=== PATIENT | female | born 1970 | race Hispanic/Latino ===

== ENCOUNTER 2018-05-24 08:49 | Outpatient (CLI) | payer OTHER ==
--- NOTE | 2018-05-24 12:53 | Mammography Report ---
BILATERAL DIGITAL SCREENING MAMMOGRAM with CAD: 05/24/18 08:49:00 CLINICAL: Routine screening. COMPARISON:03/25/16 FINDINGS: The breasts are heterogeneously dense, which may obscure small masses. No mass, architectural distortion or suspicious calcifications. IMPRESSION: No mammographic evidence of malignancy. BI-RADS CATEGORY: 1 - - Negative RECOMMENDATION: Routine mammographic screening in one year. COMMENT: Patient follow-up letters are generated by our [employer] application.
== END 2018-05-24 08:50 | disposition home or self-care (01) ==
LOC: MAMMO 08:49
PROVIDERS: ATTEND Family Medicine
DX: Z12.31 Encounter for screening mammogram for malignant neoplasm of breast (principal); I10 Essential (primary) hypertension; M10.9 Gout, unspecified
CPT/HCPCS: 77067

== ENCOUNTER 2019-06-05 07:48 | Outpatient (CLI) | payer OTHER ==
--- NOTE | 2019-06-05 13:49 | Mammography Report ---
DIGITAL SCREENING MAMMOGRAM WITH CAD, 06/05/2019 INDICATION: Routine screening mammography. TECHNIQUE: Digital bilateral 2D mammography was obtained in the craniocaudal and mediolateral obliq ue projections. This examination was interpreted with the benefit of Computer-Aided Detection analysi s. COMPARISON: 05/24/2018 FINDINGS: Breast Density: The breasts are heterogeneously dense, which may obscure small masses. There is no evidence of dominant mass, suspicious calcifications or architectural distortion in eithe r breast. IMPRESSION: No mammographic evidence of malignancy. Follow up recommendation: Routine yearly BI-RADS Category 1: Negative. A "normal" or negative report should not discourage follow up or biopsy of a clinically significant f inding. A written summary of these findings will be mailed to the patient. The patient will be entered into a mammography reporting system which will generate a reminder letter for the patient's next appointmen t at the appropriate interval. The [employer] recommends yearly mammograms starting at age 40 and continuing as l epifanio as a woman is in good health. Breast MRI is recommended for women with an approximate 20-25% or greater lifetime risk of breast cancer, including women with a strong family history of breast or ova arabella cancer or who have been treated for Hodgkin's disease. Signer Name: Dwight Eddy MD Signed: 06/05/2019 1:45 PM Workstation Name: [id number]
== END 2019-06-05 07:49 | disposition home or self-care (01) ==
LOC: MAMMO 07:48
PROVIDERS: ATTEND Family Medicine
DX: Z12.31 Encounter for screening mammogram for malignant neoplasm of breast (principal); I10 Essential (primary) hypertension; M10.9 Gout, unspecified; F12.90 Cannabis use, unspecified, uncomplicated; Z87.891 Personal history of nicotine dependence
CPT/HCPCS: 77067

== ENCOUNTER 2019-12-18 09:11 | Outpatient (CLI) | payer OTHER ==
--- NOTE | 2019-12-18 10:22 | Mammography Report ---
DIGITAL DIAGNOSTIC MAMMOGRAM WITH CAD, -- 12/18/2019 INDICATION: Patient presents for evaluation of focal pain in the left breast. Patient also is high ri sk secondary to family history of breast cancer. TECHNIQUE: Digital left mammographic imaging was performed. This examination was interpreted with the benefit of Computer-aided Detection analysis. COMPARISON: Prior mammograms 06/05/2019 and 05/24/2018 FINDINGS: Breast Density: The breasts are heterogeneously dense, which may obscure small masses. There is no evidence of dominant mass, suspicious calcifications or architectural distortion in the l eft breast. A few benign-appearing calcifications in the left breast are unchanged. There has been no significant change compared with the prior examination. There is no mammographic abnormality to acco unt for left breast pain. IMPRESSION: 1. No mammographic abnormality to account for left breast pain. Patient is scheduled for left breast ultrasound on 12/25/2019 further evaluation of her focal pain. Follow up recommendation: Ultrasound Category 0: Incomplete. Needs additional imaging evaluation and/or prior mammograms for comparison. A "normal" or negative report should not discourage follow up or biopsy of a clinically significant f inding. A written summary of these findings will be mailed to the patient. The patient will be entered into a mammography reporting system which will generate a reminder letter for the patient's next appointmen t at the appropriate interval. According to the [employer], yearly mammograms are recommended starting at age 40 and continuing as long as a woman is in good health. Breast MRI is recommended for women with an susana roximately 20-25% or greater lifetime risk of breast cancer, including women with a strong family his tory of breast or ovarian cancer and women who have been treated for Hodgkin's disease. Signer Name: Katelin Barraza MD Signed: 12/18/2019 10:17 AM Workstation Name: [id number]
== END 2019-12-18 09:12 | disposition home or self-care (01) ==
LOC: SPVWC 09:11
PROVIDERS: ATTEND Surgery
DX: N64.4 Mastodynia (principal)

== ENCOUNTER 2020-06-06 08:38 | Outpatient (CLI) | payer OTHER ==
--- NOTE | 2020-06-06 10:24 | Mammography Report ---
DIGITAL SCREENING MAMMOGRAM WITH CAD, 06/06/2020 INDICATION: Routine screening mammography. SCREENING MAMMOGRAM TECHNIQUE: Digital bilateral 2D mammography was obtained in the craniocaudal and mediolateral obliq ue projections. This examination was interpreted with the benefit of Computer-Aided Detection analysi s. COMPARISON: 12/23/2015 through 12/18/2019. FINDINGS: Breast Density: There are scattered areas of fibroglandular density. There is no evidence of dominant mass, suspicious calcifications or architectural distortion in eithe r breast. IMPRESSION: No mammographic evidence of malignancy or significant change. Follow up recommendation: Routine yearly BI-RADS Category 1: Negative. A "normal" or negative report should not discourage follow up or biopsy of a clinically significant f inding. A written summary of these findings will be mailed to the patient. The patient will be entered into a mammography reporting system which will generate a reminder letter for the patient's next appointmen t at the appropriate interval. The [employer] recommends yearly mammograms starting at age 40 and continuing as l epifanio as a woman is in good health. Breast MRI is recommended for women with an approximate 20-25% or greater lifetime risk of breast cancer, including women with a strong family history of breast or ova arabella cancer or who have been treated for Hodgkin's disease. Signer Name: Grzegorz Mayo MD Signed: 06/06/2020 10:19 AM Workstation Name: [id number]
== END 2020-06-06 08:39 | disposition home or self-care (01) ==
LOC: MAMMO 08:38
PROVIDERS: ATTEND Nurse Practitioner Gerontology
DX: Z12.31 Encounter for screening mammogram for malignant neoplasm of breast (principal)
CPT/HCPCS: 77067

== ENCOUNTER 2020-12-11 05:51 | Observation (INO) | payer OTHER ==
[2020-12-11 07:14] LABS: Basophils # (Auto) 0.1 K/mm3 (0.0-0.1); Basophils % (Auto) 0.6 % (0.0-1.8); Eosinophils # (Auto) 0.2 K/mm3 (0.0-0.4); Eosinophils % (Auto) 2.1 % (0.0-4.3); Lymphocytes # (Auto) 3.1 K/mm3 (1.2-5.4); Lymphocytes % (Auto) 31.9 % (13.4-35.0); Mean Corpuscular HGB Conc 37 % (30-34); Mean Corpuscular Volume 95 fl (79-97); Monocytes # (Auto) 1.2 K/mm3 (0.0-0.8); Monocytes % (Auto) 12.2 % (0.0-7.3); Platelet Count 261 K/mm3 (140-440); Red Blood Count 3.79 M/mm3 (3.65-5.03); Red Cell Distribution Width 12.6 % (13.2-15.2)
[2020-12-11 07:16] LABS: Hematocrit 35.9 % (30.3-42.9); Hemoglobin 13.1 gm/dl (10.1-14.3)
[2020-12-11 07:25] LABS: Partial Thromboplastin Time 25.1 Sec. (24.2-36.6)
[2020-12-11 07:27] LABS: Blood Urea Nitrogen 14 mg/dL (7-17); Calcium 9.3 mg/dL (8.4-10.2); Hemolysis Index 25
[2020-12-11 07:37] LABS: BUN/Creatinine Ratio 20
[2020-12-11] MEDS ORDERED: HEPARIN/NS 5000 UNIT/500ML 1,000 ML IR ONE (08:02)
[2020-12-11] MEDS ORDERED: NITROGLYCERIN SYRINGE 3 ML ONE (08:03)
[2020-12-11] MEDS: SODIUM CHLORIDE 0.9% 500 ML 500 ML IV SCH ×2 (08:11→08:55)
[2020-12-11] MEDS ORDERED: POTASSIUM CHLORIDE ER 20 MEQ TAB PO SCH (08:30)
[2020-12-11] MEDS: fentaNYL 100 MCG/2 ML INJ ONE ×2 (08:53→09:04)
[2020-12-11] MEDS: LIDOCAINE (2%) 20 MG/1 ML VIAL 20 ML MDV INFILTRATI ONE ×2 (08:54→09:07)
[2020-12-11] MEDS: MIDAZOLAM 2 MG/2 ML INJ ONE ×2 (08:54→09:04)
[2020-12-11] MEDS: HEPARIN 10,000 UNITS/10 ML VIAL ONE ×2 (08:55→09:09)
[2020-12-11] MEDS ORDERED: ALUM-MAG HYDROXIDE-SIMETHICONE 200-200-20MG/5ML ORAL LIQD 30 ML ONE (09:48)
[2020-12-11] MEDS ORDERED: CLOPIDOGREL 75 MG TAB ONE (09:49)
[2020-12-11] MEDS ORDERED: SODIUM CHLORIDE 0.9% 1000 ML 1,000 ML IV SCH (10:00)
[2020-12-11] MEDS ORDERED: LAMOTRIGINE 25 MG PO SCH (10:15)
--- NOTE | 2020-12-11 10:55 | Electrocardiograph Report ---
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
--- NOTE | 2020-12-11 10:56 | Electrocardiograph Report ---
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
--- NOTE | 2020-12-11 12:01 | Short Stay Summary ---
Short Stay Documentation Date of service: 12/11/20 - History H&P: obtained from office - Allergies and Medications Current Medications: Allergies hydrocodone Allergy (Verified 09/27/14 14:18) Nausea and vomiting Home Medications Medication Instructions Recorded Confirmed Last Taken Type Potassium Chloride [K-Tab ER] 20 meq PO DAILY 10/08/14 12/11/20 12/10/20 History Aspirin [Aspirin BABY CHEW TAB] 81 mg PO QDAY 12/11/20 12/11/20 12/11/20 02:57 History AtorvaSTATin [Lipitor] 20 mg PO QHS 12/11/20 12/11/20 12/10/20 History Chlorthalidone [Thalitone] 25 mg PO QDAY 12/11/20 12/11/20 12/10/20 History Clopidogrel [Plavix] 75 mg PO QDAY 12/11/20 12/11/20 12/11/20 02:57 History ISOSORBIDE MONOnitrate [Imdur ER] 30 mg PO DAILY 12/11/20 12/11/20 12/10/20 History Losartan [Cozaar] 50 mg PO QDAY 12/11/20 12/11/20 12/10/20 History Omeprazole 40 mg PO BID 12/11/20 12/11/20 12/10/20 History lamoTRIgine [lamoTRIgine ER] 25 mg PO DAILY 12/11/20 12/11/20 12/10/20 History Active Medications Aspirin (Aspirin 81 Mg Tab Chew) 81 mg PO QDAY OMAR Atorvastatin Calcium (Atorvastatin 20 Mg Tab) 20 mg PO QHS [facility] Chlorthalidone (Chlorthalidone 25 Mg Tab) 25 mg PO QDAY OMAR Clopidogrel Bisulfate (Clopidogrel 75 Mg Tab) 75 mg PO QDAY OMAR Sodium Chloride (Nacl 0.9% 500 Ml) 500 mls @ 50 mls/hr IV DIRECT OMAR Stop: 12/11/20 16:59 Last Admin: 12/11/20 08:55 Dose: 50 mls/hr Documented by: Sodium Chloride (Nacl 0.9% 1000 Ml) 1,000 mls @ 100 mls/hr IV DIRECT OMAR Stop: 12/11/20 17:30 Isosorbide Mononitrate (Isosorbide Mononitrate Er 30 Mg Tab) 30 mg PO DAILY OMAR Losartan Potassium (Losartan 50 Mg Tab) 50 mg PO QDAY OMAR Miscellaneous Medication (Lamotrigine [Lamotrigine Er]) 25 mg PO DAILY OMAR Pantoprazole Sodium (Pantoprazole 40 Mg Tab) 40 mg PO QDAC OMAR Potassium Chloride (Potassium Chloride Er 20 Meq Tab) 20 meq PO ONCE OMAR Stop: 12/11/20 15:00 Last Admin: 12/11/20 08:10 Dose: 20 meq Documented by: Potassium Chloride (Potassium Chloride Er 20 Meq Tab) 20 meq PO QDAY OMAR - Physical exam General appearance: no acute distress Integumentary: other (RG cath site inspected. Telfa and tegaderm intact. No bleeding or hematoma noted. ) Lungs: Clear to auscultation Heart: Regular rate, Normal S1, Normal S2 Gastrointestinal: normal, normoactive bowel sounds Extremities: no ischemia - Brief post op/procedure progress note Date of procedure: 12/11/20 Pre-op diagnosis: Abnormal Stress Test, PreOp Risk Assessment Post-op diagnosis: other (Coronary Artery Disease, s/p PCI) Anesthesia: local Estimated blood loss: minimal Pathology: none Condition: stable - Disposition Condition at discharge: Good Disposition: DC-01 TO HOME OR SELFCARE - Discharge Diagnoses (1) Coronary artery disease Status: Chronic Short Stay Discharge Plan Activity: advance as tolerated Diet: low fat, low cholesterol, low salt Wound: open to air, keep clean and dry, per your surgeon's advice Follow up with: LETTY WATKINS NP [Primary Care Provider] - 7 Days MATTHEW FRANCES MD [Staff Physician] - 7 Days (Patient should follow-up with Dr. Lindsey Frances in our [place] office on 12/26/2020 at 9 AM. #[phone]) Forms: CardCath PCI D/C Instructions
[2020-12-11] MEDS: PANTOPRAZOLE 40 MG TAB PO SCH (12:50)
[2020-12-11] MEDS: LOSARTAN 50 MG TAB PO SCH (12:50)
--- NOTE | 2020-12-11 15:29 | Cardiac Catherization Report ---
DATE OF SERVICE: 12/11/2020 LEFT HEART CATHETERIZATION AND PERCUTANEOUS CORONARY INTERVENTION AND INTRAVENOUS ULTRASOUND CLINICAL INFORMATION: This is a 50-year-old -Swedish female with chest pain with abnormal stress test, inferior wall defect, had a left heart catheterization at [facility], which showed left main patent, LAD at bifurcation 20-30%, diagonal 1 medium caliber vessel and patent, LAD is a large caliber and patent, circumflex in the AV groove is a large caliber vessel and patent, but OM1 is 100% proximal is GRAVEL ROOFER with kiyc-ig-lgza collaterals feeding a small OM1. RCA is a dominant vessel of a small caliber. Diffuse disease from proximal to distal at 90% with mild inferior wall hypokinesis. The patient was done with moderate sedation, started at 09:04, finished at 09:42, 38 minutes of moderate sedation. DESCRIPTION OF PROCEDURE: 1. Procedure was done via the right common femoral artery, sterile technique, local anesthesia. A 6-[place] groin sheath inserted. 2. Engaged the RCA with a 6-[place] JR4 with sideholes. Angiogram revealed a small caliber vessel, proximal 90% right after 2 RV branches. Then, the RCA has just mid diffuse 90%. Then, after the crux, there is another focal 70%. Distal patent small PDA, PLV. 3. Crossed into the distal PDA with a Runthrough wire. 4. Ballooned with a 2.0 x 20 mm balloon x 3 inflations at 12 atmospheres. Improved size. 5. Intravascular ultrasound showed diffuse disease with reference vessel 2.25 x 2.5, higher in the proximal RCA. 6. Stent into the mid RCA with a drug-eluting Resolute [place] 2.25 x 38 mm at 12 atmospheres. 7. Stent to the proximal RCA with 2.5 x 12 mm balloon, right after the RV marginals, inflated at 12 atmospheres and the overlap region inflated at 15 atmospheres. 8. Stent to the distal RCA overlapping the previously deployed mid RCA with the same drug-eluting Resolute [place] 2.25 x 12 inflated at 12 atmospheres and the overlap region inflated at 15 atmospheres. 9. Then postdilated with a 2.5 x 15 mm noncompliant balloon from mid to proximal at 12 atmospheres. 10. Excellent angiographic result. No dissection or perforation noted. Coronary wire was removed, multiple angiograms, continued ANABEL 3 flow. No dissection or perforation. Reduced from 90% down to 0 with good stent apposition and expansion noted. A 6-[place] guiding catheter, taken over a guidewire. 11. Attempted PCI of OM, engage the left system, an EBU 3.5 guiding catheter. Left main large and patent. LAD is a large caliber vessel, proximal patent, mid at the bifurcation of a medium caliber diagonal has a diffuse 20-30%. Rest of the LAD is patent. Circumflex AV groove is a large caliber vessel, patent. OM1 is 100% proximally, we see ihik-fo-pcfm collaterals, feeding the small OM1. Tried to cross with a Runthrough wire with access, tried to cross with a Portrait Photographer wire , tried to cross with a balloon backup without success. Attempted unsuccessful PCI of OM1 secondary to GRAVEL ROOFER of OM, chronic. We will remove coronary wire, multiple angiograms ANABEL 3 flow. No dissection or perforation noted. No change angiographically. A 6-[place]wan[place] guiding catheter, taken over guidewire. A 6 [place] groin sheath was sewn and no hematoma, no bleeding. SUMMARY: 1. Successful PCI of the proximal, mid, distal RCA with the mid RCA drug-eluting Resolute [place] 2.25 x 38, proximal 2.5 x 12 overlapping and distal 2.25 x 12 overlapping, all postdilated with a 2.5 x 15 mm noncompliant balloon. 2. Left main, patent, LAD proximal patent, mid 20-30%, bifurcating into diagonal 1, which medium caliber and patent. Rest of the LAD is a large caliber and patent. Circumflex in the AV groove is large caliber and patent. OM1 is 100% GRAVEL ROOFER. If the patient fails medical therapy, consider referral for GRAVEL ROOFER of OM and discussed in detail with the patient and the patient's family. TID: [id number] RECEIPT: [id number] LUIS MIGUEL/DAVID/LIBORIO
[2020-12-11] MEDS: ASPIRIN 81 MG TAB CHEW PO SCH (16:51)
[2020-12-12 07:13] LABS: Basophils % (Auto) 0.5 % (0.0-1.8); Eosinophils # (Auto) 0.3 K/mm3 (0.0-0.4); Eosinophils % (Auto) 2.8 % (0.0-4.3); Hematocrit 34.2 % (30.3-42.9); Hemoglobin 12.1 gm/dl (10.1-14.3); Lymphocytes # (Auto) 2.6 K/mm3 (1.2-5.4); Lymphocytes % (Auto) 25.7 % (13.4-35.0); Mean Corpuscular HGB Conc 35 % (30-34); Mean Corpuscular Volume 97 fl (79-97); Monocytes % (Auto) 9.9 % (0.0-7.3); Platelet Count 253 K/mm3 (140-440); Red Blood Count 3.54 M/mm3 (3.65-5.03)
[2020-12-12 07:37] LABS: Blood Urea Nitrogen 10 mg/dL (7-17); Calcium 8.7 mg/dL (8.4-10.2); Hemolysis Index 2
[2020-12-12 07:42] LABS: BUN/Creatinine Ratio 14
[2020-12-12 08:23] VITALS: BP 136/79
--- NOTE | 2020-12-12 08:33 | XRay Report ---
CHEST 1 VIEW INDICATION / CLINICAL INFORMATION: post pci. COMPARISON: None available. FINDINGS: SUPPORT DEVICES: None. HEART / MEDIASTINUM: No significant abnormality. LUNGS / PLEURA: No significant pulmonary or pleural abnormality. No pneumothorax. ADDITIONAL FINDINGS: No significant additional findings. IMPRESSION: 1. No acute findings. Signer Name: Katelin Barraza MD Signed: 12/12/2020 8:28 AM Workstation Name: [id number]
[2020-12-12] MEDS: PANTOPRAZOLE 40 MG TAB PO SCH (08:34)
[2020-12-12] MEDS ORDERED: POTASSIUM CHLORIDE ER 20 MEQ TAB PO NR (08:51)
[2020-12-12] MEDS ORDERED: CHLORTHALIDONE 25 MG TAB PO SCH (10:00)
[2020-12-12] MEDS ORDERED: NON-FORMULARY EACH (Omeprazole [Omeprazole] 40 MG Capsule.Dr) PO SCH (10:00)
[2020-12-12] MEDS ORDERED: CLOPIDOGREL 75 MG TAB PO SCH (10:00)
[2020-12-12] MEDS ORDERED: POTASSIUM CHLORIDE 20 MEQ PO SCH (10:00)
[2020-12-12] MEDS ORDERED: POTASSIUM CHLORIDE ER 20 MEQ TAB PO SCH (10:00)
[2020-12-12] MEDS: LOSARTAN 50 MG TAB PO SCH (10:13)
[2020-12-12] MEDS: ASPIRIN 81 MG TAB CHEW PO SCH (10:13)
[2020-12-12 11:01] LABS: Chol/HDL Ratio 2.93 %; HDL Cholesterol 43 mg/dL (40-59); LDL Cholesterol,Direct 72 mg/dL (50-130)
--- NOTE | 2020-12-12 14:00 | Electrocardiograph Report ---
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
== END 2020-12-12 11:30 | disposition home or self-care (01) ==
LOC: CATHLABREC 05:51 → 4A 10:02
PROVIDERS: ADMIT Internal Medicine; ATTEND Internal Medicine
DX: I25.10 Atherosclerotic heart disease of native coronary artery without angina pectoris (principal); R94.39 Abnormal result of other cardiovascular function study; Z98.61 Coronary angioplasty status; Z79.82 Long term (current) use of aspirin; Z79.899 Other long term (current) drug therapy; Z98.890 Other specified postprocedural states
CPT/HCPCS: 36415; 71045; 80048; 80061; 82962; 84484; 85025; 85347; 85610; 85730; 92920; 92978; 93005; 96360; 96361; A9270; C1725; C1753; C1769; C1874; C1887; C1894; C9600; G0378; J1644; J2250; J3010; J7030; J7040; 92928; Q9967

== ENCOUNTER 2020-12-16 10:42 | Observation (INO) | payer OTHER ==
[2020-12-16] MEDS ORDERED: ASPIRIN 325 MG TAB PO ONE (10:56)
--- NOTE | 2020-12-16 11:27 | XRay Report ---
CHEST 1 VIEW INDICATION: chest pain and shortness of breath. COMPARISON: 12/12/2020 FINDINGS: Support devices: None. Heart: Within normal limits. Lungs/Pleura: No acute air space or interstitial disease. Additional findings: None. IMPRESSION: No acute findings. Signer Name: Roderick Giang Jr, MD Signed: 12/16/2020 11:22 AM Workstation Name: [id number]
[2020-12-16 11:38] LABS: Basophils # (Auto) 0.1 K/mm3 (0.0-0.1); Basophils % (Auto) 0.9 % (0.0-1.8); Eosinophils # (Auto) 0.2 K/mm3 (0.0-0.4); Eosinophils % (Auto) 2.1 % (0.0-4.3); Hematocrit 38.1 % (30.3-42.9); Hemoglobin 13.5 gm/dl (10.1-14.3); Lymphocytes # (Auto) 3.7 K/mm3 (1.2-5.4); Lymphocytes % (Auto) 35.9 % (13.4-35.0); Mean Corpuscular HGB Conc 35 % (30-34); Mean Corpuscular Volume 98 fl (79-97); Monocytes # (Auto) 0.8 K/mm3 (0.0-0.8); Monocytes % (Auto) 8.1 % (0.0-7.3); Platelet Count 323 K/mm3 (140-440); Red Blood Count 3.91 M/mm3 (3.65-5.03); Red Cell Distribution Width 13.1 % (13.2-15.2)
[2020-12-16 12:19] LABS: Alanine Aminotransferase 24 units/L (7-56); Albumin 4.7 g/dL (3.9-5); Blood Urea Nitrogen 10 mg/dL (7-17); Calcium 10.2 mg/dL (8.4-10.2); Hemolysis Index 5
[2020-12-16 12:35] LABS: BUN/Creatinine Ratio 14
--- NOTE | 2020-12-16 13:47 | Cat Scan Report ---
CTA CHEST WITH CONTRAST INDICATION / CLINICAL INFORMATION: Chest pain, shortness of breath. TECHNIQUE: Axial CT images were obtained through the chest after injection of 100 cc of Omnipaque 350 IV contrast. 3 plane MIP and/or 3D reconstructions were produced. All CT scans at this location are performed using CT dose reduction for ALARA by means of automated exposure control. COMPARISON: None available. FINDINGS: PULMONARY ARTERIES: No pulmonary emboli. THORACIC AORTA: No significant abnormality. HEART: No significant abnormality. CORONARY ARTERY CALCIFICATION: Mild. MEDIASTINUM / EVETTE: No significant abnormality. PLEURA: No pleural effusion. No pneumothorax. LUNGS: No acute air space or interstitial disease. ADDITIONAL FINDINGS: None. UPPER ABDOMEN: No acute findings. SKELETAL STRUCTURES: No acute osseous abnormality. IMPRESSION: 1. No CT evidence for pulmonary embolism. 2. No acute findings. Signer Name: Evan Irving MD Signed: 12/16/2020 1:42 PM Workstation Name: [id number]
--- NOTE | 2020-12-16 14:22 | Emergency Department Report ---
ED General Adult HPI - General Chief complaint: Chest Pain Stated complaint: CHEST PAIN Time Seen by Provider: 12/16/20 11:32 Source: patient, EMS Mode of arrival: Stretcher Limitations: No Limitations - History of Present Illness Initial comments: Patient presents to the emergency department the chief complaint of acute onset of shortness of breath that happened around 8 AM this morning. Patient also complains of substernal chest pain that is nonradiating. Patient is 4 weeks status post OK with stent placement. Patient states that she received 3 stents. Patient states her shortness of breath is worse with exertion. Patient states she is taking her medications as prescribed by cardiology. She denies abdominal pain or headache. -: Sudden Location: chest Radiation: non-radiation Severity scale (0 -10): 6 Quality: sharp Consistency: constant Improves with: none Worsens with: none Associated Symptoms: denies other symptoms Treatments Prior to Arrival: none - Related Data Home Medications Medication Instructions Recorded Confirmed Last Taken Potassium Chloride [K-Tab ER] 20 meq PO DAILY 10/08/14 12/11/20 12/10/20 Aspirin [Aspirin BABY CHEW TAB] 81 mg PO QDAY 12/11/20 12/16/20 12/11/20 02:57 AtorvaSTATin [Lipitor] 20 mg PO QHS 12/11/20 12/11/20 12/10/20 Chlorthalidone [Thalitone] 25 mg PO QDAY 12/11/20 12/11/20 12/10/20 Clopidogrel [Plavix] 75 mg PO QDAY 12/11/20 12/11/20 12/11/20 02:57 ISOSORBIDE MONOnitrate [Imdur ER] 30 mg PO DAILY 12/11/20 12/11/20 12/10/20 Losartan [Cozaar] 50 mg PO QDAY 12/11/20 12/11/20 12/10/20 Omeprazole 40 mg PO BID 12/11/20 12/11/20 12/10/20 lamoTRIgine [lamoTRIgine ER] 25 mg PO DAILY 12/11/20 12/11/20 12/10/20 Aspirin [Adult Aspirin] 81 mg PO DAILY 12/16/20 12/16/20 Unknown Allergies Allergy/AdvReac Type Severity Reaction Status Date / Time hydrocodone Allergy Nausea and Verified 09/27/14 14:18 vomiting ED Review of Systems ROS: Stated complaint: CHEST PAIN Other details as noted in HPI Constitutional: denies: chills, fever Eyes: denies: eye pain, eye discharge, vision change ENT: denies: ear pain, throat pain Respiratory: shortness of breath. denies: cough, wheezing Cardiovascular: chest pain. denies: palpitations Endocrine: no symptoms reported Gastrointestinal: denies: abdominal pain, nausea, diarrhea Genitourinary: denies: urgency, dysuria, discharge Musculoskeletal: denies: back pain, joint swelling, arthralgia Skin: denies: rash, lesions Neurological: denies: headache, weakness, paresthesias Psychiatric: denies: anxiety, depression Hematological/Lymphatic: denies: easy bleeding, easy bruising ED Past Medical Hx - Past Medical History Hx Hypertension: Yes (x 19 yrs takes nifedipine and impamide) Hx Congestive Heart Failure: No Hx Diabetes: No Hx GERD: Yes Hx Headaches / Migraines: Yes (migraines) Hx Psychiatric Treatment: (Depression) Hx Asthma: No Hx COPD: No Additional medical history: Gout - Surgical History Additional Surgical History: Stent placement, right hand - Social History Smoking Status: Former Smoker Substance Use Type: Alcohol, Marijuana - Medications Home Medications: Home Medications Medication Instructions Recorded Confirmed Last Taken Type Potassium Chloride [K-Tab ER] 20 meq PO DAILY 10/08/14 12/11/20 12/10/20 History Aspirin [Aspirin BABY CHEW TAB] 81 mg PO QDAY 12/11/20 12/16/20 12/11/20 02:57 History AtorvaSTATin [Lipitor] 20 mg PO QHS 12/11/20 12/11/20 12/10/20 History Chlorthalidone [Thalitone] 25 mg PO QDAY 12/11/20 12/11/20 12/10/20 History Clopidogrel [Plavix] 75 mg PO QDAY 12/11/20 12/11/20 12/11/20 02:57 History ISOSORBIDE MONOnitrate [Imdur ER] 30 mg PO DAILY 12/11/20 12/11/20 12/10/20 History Losartan [Cozaar] 50 mg PO QDAY 12/11/20 12/11/20 12/10/20 History Omeprazole 40 mg PO BID 12/11/20 12/11/20 12/10/20 History lamoTRIgine [lamoTRIgine ER] 25 mg PO DAILY 12/11/20 12/11/20 12/10/20 History Aspirin [Adult Aspirin] 81 mg PO DAILY 12/16/20 12/16/20 Unknown History ED Physical Exam - General Limitations: No Limitations General appearance: alert, in no apparent distress - Head Head exam: Present: atraumatic, normocephalic - Eye Eye exam: Present: normal appearance, PERRL, EOMI - ENT ENT exam: Present: mucous membranes moist - Neck Neck exam: Present: normal inspection - Respiratory Respiratory exam: Present: normal lung sounds bilaterally. Absent: respiratory distress - Cardiovascular Cardiovascular Exam: Present: regular rate, normal rhythm. Absent: systolic murmur, diastolic murmur, rubs, gallop - GI/Abdominal GI/Abdominal exam: Present: soft, normal bowel sounds. Absent: distended, tenderness - Extremities Exam Extremities exam: Present: normal inspection, other (Bilateral lower extremity pitting edema which is mild in nature) - Back Exam Back exam: Present: normal inspection - Neurological Exam Neurological exam: Present: alert, oriented X3, CN II-XII intact. Absent: motor sensory deficit - Psychiatric Psychiatric exam: Present: normal affect, normal mood - Skin Skin exam: Present: warm, dry, intact, normal color. Absent: rash ED Course Vital Signs 12/16/20 12/16/20 10:51 11:04 Temperature 98.4 F Pulse Rate 80 Respiratory 19 16 Rate Blood Pressure 134/96 O2 Sat by Pulse 100 100 Oximetry ED Medical Decision Making - Lab Data Result diagrams: 12/16/20 10:59 12/16/20 10:59 Lab Results 12/16/20 12/16/20 Range/Units 10:59 10:59 WBC 10.4 (4.5-11.0) K/mm3 RBC 3.91 (3.65-5.03) M/mm3 Hgb 13.5 (10.1-14.3) gm/dl Hct 38.1 (30.3-42.9) % MCV 98 H (79-97) fl MCH 34 H (28-32) pg MCHC 35 H (30-34) % RDW 13.1 L (13.2-15.2) % Plt Count 323 (140-440) K/mm3 Lymph % (Auto) 35.9 H (13.4-35.0) % [place] % (Auto) 8.1 H (0.0-7.3) % Eos % (Auto) 2.1 (0.0-4.3) % Baso % (Auto) 0.9 (0.0-1.8) % Lymph # (Auto) 3.7 (1.2-5.4) K/mm3 [place] # (Auto) 0.8 (0.0-0.8) K/mm3 Eos # (Auto) 0.2 (0.0-0.4) K/mm3 Baso # (Auto) 0.1 (0.0-0.1) K/mm3 Seg Neutrophils % 53.0 (40.0-70.0) % Seg Neutrophils # 5.5 (1.8-7.7) K/mm3 Sodium 136 L (137-145) mmol/L Potassium 3.9 D (3.6-5.0) mmol/L Chloride 97.2 L (98-107) mmol/L Carbon Dioxide 27 (22-30) mmol/L Anion Gap 16 mmol/L BUN 10 (7-17) mg/dL Creatinine 0.7 (0.6-1.2) mg/dL Estimated GFR > 60 ml/min BUN/Creatinine Ratio 14 % Glucose 90 (65-100) mg/dL Calcium 10.2 D (8.4-10.2) mg/dL Total Bilirubin 0.60 (0.1-1.2) mg/dL AST 24 (5-40) units/L ALT 24 (7-56) units/L Alkaline Phosphatase 114 (35-129) units/L Total Protein 8.2 (6.3-8.2) g/dL Albumin 4.7 (3.9-5) g/dL Albumin/Globulin Ratio 1.3 % - EKG Data -: EKG Interpreted by Me EKG shows normal: sinus rhythm Rate: normal - Medical Decision Making Discussed results of imaging and laboratory values with the patient Cardiology consulted and will see the patient and asked for the patient to be admitted for further evaluation Critical care attestation.: If time is entered above; I have spent that time in minutes in the direct care of this critically ill patient, excluding procedure time. ED Disposition Clinical Impression: Chest pain, Dyspnea Disposition: OP ADMIT IP TO THIS HOSP Is pt being admited?: Yes Does the pt Need Aspirin: No Condition: Fair Instructions: Nonspecific Chest Pain, Adult Referrals: PRIMARY CARE,MD [Primary Care Provider] - 3-5 Days Heart Score - HEART Score History: Moderately suspicious EKG: Non-specific Age: 45-65 Risk factors: 1-2 risk factors Troponin: < normal limit HEART Score: 4 - EKG Read Time Time EKG Completed: 10:55 EKG Read Time: 11:00 - Critical Actions Critical Actions: 4-6 pts:12-16.6% risk of adverse cardiac event. Should be admitted
--- NOTE | 2020-12-16 14:40 | Consultation ---
History of Present Illness Consult date: 12/16/20 Consult reason: chest pain History of present illness: This patient is a 50-year-old female with a significant history of AMI 3 weeks ago status post stent placement x3, chronic total occlusion of OM1 coronary artery, hypertension, GERD, bipolar. She is followed by Dr. Lindsey Frances with our office. Patient presents to [facility] ER with chief complaint of chest pain and shortness of breath x1 day. Patient describes chest pain as substernal, 6 out of 10, sharp constant nonradiating with no provoking or palliative factors. Shortness of breath worse with exertion. Patient reports she has been compliant with all medications prescribed by cardiology. Cath report reviewed (12/11/2020): Successful PCI of the proximal,, mid, distal RCA with a mid RCA LUISA. Left main, patent, LAD proximal patent, mid 20 to 30%, bifurcating into diagonal 1, which medium caliber and patent. Rest of the LAD is a large caliber and patent. Circumflex in the AV groove is large caliber and patent. OM1 is 100% [employer]ER. If patient fails medical therapy, consider referral for [employer]ER of OM. Past History Past Medical History: other Medications and Allergies Allergies Allergy/AdvReac Type Severity Reaction Status Date / Time hydrocodone Allergy Nausea and Verified 09/27/14 14:18 vomiting Home Medications Medication Instructions Recorded Confirmed Last Taken Type Potassium Chloride [K-Tab ER] 20 meq PO DAILY 10/08/14 12/16/20 12/10/20 History Aspirin [Aspirin BABY CHEW TAB] 81 mg PO QDAY 12/11/20 12/16/20 12/11/20 02:57 History AtorvaSTATin [Lipitor] 20 mg PO QHS 12/11/20 12/16/20 12/10/20 History Chlorthalidone [Thalitone] 25 mg PO QDAY 12/11/20 12/16/20 12/10/20 History Clopidogrel [Plavix] 75 mg PO QDAY 12/11/20 12/16/20 12/11/20 02:57 History ISOSORBIDE MONOnitrate [Imdur ER] 30 mg PO DAILY 12/11/20 12/16/20 12/10/20 History Losartan [Cozaar] 50 mg PO QDAY 12/11/20 12/16/20 12/10/20 History Omeprazole 40 mg PO BID 12/11/20 12/16/20 12/10/20 History lamoTRIgine [lamoTRIgine ER] 25 mg PO DAILY 12/11/20 12/16/20 12/10/20 History Aspirin [Adult Aspirin] 81 mg PO DAILY 12/16/20 12/16/20 Unknown History Review of Systems Constitutional: no weight loss, no weight gain, no fever, no chills, no sweats Ears, nose, mouth and throat: no ear pain, no ear discharge, no nose pain, no nasal congestion, no nasal discharge Cardiovascular: chest pain, shortness of breath, dyspnea on exertion, no orthopnea, no palpitations, no rapid/irregular heart beat, no edema, no syncope, no lightheadedness Respiratory: dyspnea on exertion, no cough, no hemoptysis, no shortness of breath Gastrointestinal: no abdominal pain, no nausea, no vomiting, no diarrhea Genitourinary Female: no flank pain Musculoskeletal: no neck stiffness, no neck pain, no shooting arm pain, no arm numbness/tingling, no low back pain, no shooting leg pain Integumentary: no rash, no pruritis, no redness, no sores, no wounds Neurological: no head injury, no paralysis, no weakness, no parathesias, no numbness, no tingling, no seizures, no syncope Psychiatric: no anxiety Endocrine: no cold intolerance, no heat intolerance Hematologic/Lymphatic: no easy bruising, no easy bleeding Allergic/Immunologic: no urticaria Physical Examination Last Vital Signs Temp 98.4 F 12/16/20 10:51 Pulse 80 12/16/20 10:51 Resp 16 12/16/20 11:04 BP 134/96 12/16/20 10:51 Pulse Ox 100 12/16/20 11:04 General appearance: mild distress HEENT: Positive: PERRL, Normocephaly Neck: Positive: neck supple, trachea midline Neuro: Positive: Grossly Intact Abdomen: Positive: Unremarkable, Soft Skin: Negative: Rash, Wound Extremities: Absent: upper extr. pulses, lower extr. pulses Results 12/16/20 10:59 12/16/20 10:59 Cardiac Enzymes 12/16/20 Range/Units 10:59 AST 24 (5-40) units/L CBC 12/16/20 Range/Units 10:59 WBC 10.4 (4.5-11.0) K/mm3 RBC 3.91 (3.65-5.03) M/mm3 Hgb 13.5 (10.1-14.3) gm/dl Hct 38.1 (30.3-42.9) % Plt Count 323 (140-440) K/mm3 Lymph # (Auto) 3.7 (1.2-5.4) K/mm3 [place] # (Auto) 0.8 (0.0-0.8) K/mm3 Eos # (Auto) 0.2 (0.0-0.4) K/mm3 Baso # (Auto) 0.1 (0.0-0.1) K/mm3 Comprehensive Metabolic Panel 12/16/20 Range/Units 10:59 Sodium 136 L (137-145) mmol/L Potassium 3.9 D (3.6-5.0) mmol/L Chloride 97.2 L (98-107) mmol/L Carbon Dioxide 27 (22-30) mmol/L BUN 10 (7-17) mg/dL Creatinine 0.7 (0.6-1.2) mg/dL Glucose 90 (65-100) mg/dL Calcium 10.2 D (8.4-10.2) mg/dL AST 24 (5-40) units/L ALT 24 (7-56) units/L Alkaline Phosphatase 114 (35-129) units/L Total Protein 8.2 (6.3-8.2) g/dL Albumin 4.7 (3.9-5) g/dL - Imaging and Cardiology Echo: pending Cardiac cath: report reviewed (Cath report reviewed (12/11/2020): Successful PCI of the proximal,, mid, distal RCA with a mid RCA LUISA. Left main, patent, LAD proximal patent, mid 20 to 30%, bifurcating into diagonal 1, which medium caliber and patent. Rest of the LAD is a large caliber and patent. Circumflex in the AV groove is) EKG: report reviewed, image reviewed EKG interpretations - Telemetry EKG Rhythm: Sinus Rhythm - EKG Sinus rhythms and dysrhythmias: sinus rhythm Assessment and Plan Chest pain in setting of [employer] of coronary artery. Echocardiogram is pending read 12-lead reviewed no ST segment elevation. Troponin is negative x1. Continue to trend CE's. History of AMI status post LUISA stent placement x3 Resume aspirin 81 mg p.o., Plavix 75 mg p.o. daily Cardiomyopathy Echocardiogram reviewed (07/02/2020): LVEF is 45%. Inferior wall appears moderately hypokinetic. Inferior lateral wall appears moderately hypokinetic. Grade 1 diastolic dysfunction. RV SF is normal. Mild MR. Mild TR. Beta-arun therapy is indicated metoprolol has been initiated 50 mg twice daily. Hypertension Optimize antihypertensive regimen. Initiate metoprolol 50 mg twice daily. DVT prophylaxis Lovenox SQ Continue to trend CE's. Further recommendations pending echocardiogram. If no improvement, will consider [facility] for . We will follow This patient was seen in conjunction with Dr Noriega who agrees with this assessment and plan of care. - Patient Problems (1) Chest pain Current Visit: Yes Status: Acute (2) Chronic total occlusion of [place] coronary artery Current Visit: Yes Status: Chronic (3) Status post insertion of drug eluting coronary artery stent Current Visit: Yes Status: Chronic (4) Dyspnea Current Visit: Yes Status: Acute (5) Coronary artery disease Current Visit: Yes Status: Chronic
[2020-12-16] MEDS ORDERED: ASPIRIN 81 MG TAB CHEW PO ONE (14:41)
[2020-12-16] MEDS: CLOPIDOGREL 75 MG TAB PO SCH (20:23)
[2020-12-16] MEDS: METOPROLOL TARTRATE 50 MG TAB PO SCH ×2 (20:24→21:08)
[2020-12-16] MEDS: ENOXAPARIN 40 MG/0.4 ML INJ SUB-Q SCH ×2 (20:24→21:07)
[2020-12-16] MEDS ORDERED: oxyCODONE /ACETAMINOPHEN 5-325MG TAB PO PRN (22:50)
[2020-12-16] MEDS ORDERED: ACETAMINOPHEN 325 MG TAB PO PRN (22:50)
[2020-12-16] MEDS ORDERED: ZOLPIDEM 5 MG TAB PO PRN (22:50)
[2020-12-16] MEDS ORDERED: MORPHINE 2 MG/1 ML INJ IV PRN (22:50)
[2020-12-16] MEDS ORDERED: ONDANSETRON 4 MG/2 ML INJ IV PRN (22:50)
--- NOTE | 2020-12-16 23:39 | History and Physical Report ---
History of Present Illness Date of examination: 12/16/20 Date of admission: 12/16/20 14:47 Chief complaint: Chest pain since a.m. History of present illness: 50-year-old female with coronary artery disease on Plavix comes in for chest pain since 8 AM this morning. Chest pain is intermittent and retrosternal. No diaphoresis no shortness of breath. Patient is post weeks s/p NC with stent placement by Dr. Luz Frances. She had 3 stents. Patient was about to go for follow-up today with the cardiology office but ended up in the emergency room because of acute onset of chest pain. Chest pain is about 7 on a scale of 1-10 and intermittent in nature. No exacerbating or relieving factors. - Past Medical History --Hypertension: Yes (x 19 yrs takes nifedipine and impamide) --GERD: Yes --Headaches / Migraines: Yes (migraines) --Psychiatric Treatment: (Depression) Additional medical history: Gout - Surgical History Additional Surgical History: Stent placement, right hand - Social History Smoking Status: Former Smoker Substance Use Type: Alcohol, Marijuana - Medications Home Medications: Home Medications Medication Instructions Recorded Confirmed Last Taken Type Potassium Chloride [K-Tab ER] 20 meq PO DAILY 10/08/14 12/11/20 12/10/20 History Aspirin [Aspirin BABY CHEW TAB] 81 mg PO QDAY 12/11/20 12/16/20 12/11/20 02:57 History AtorvaSTATin [Lipitor] 20 mg PO QHS 12/11/20 12/11/20 12/10/20 History Chlorthalidone [Thalitone] 25 mg PO QDAY 12/11/20 12/11/20 12/10/20 History Clopidogrel [Plavix] 75 mg PO QDAY 12/11/20 12/11/20 12/11/20 02:57 History ISOSORBIDE MONOnitrate [Imdur ER] 30 mg PO DAILY 12/11/20 12/11/20 12/10/20 History Losartan [Cozaar] 50 mg PO QDAY 12/11/20 12/11/20 12/10/20 History Omeprazole 40 mg PO BID 12/11/20 12/11/20 12/10/20 History lamoTRIgine [lamoTRIgine ER] 25 mg PO DAILY 12/11/20 12/11/20 12/10/20 History Aspirin [Adult Aspirin] 81 mg PO DAILY 12/16/20 12/16/20 Unknown History Review of Systems ROS: Stated complaint: CHEST PAIN Other details as noted in HPI Constitutional: denies: chills, fever Eyes: denies: eye pain, eye discharge, vision change ENT: denies: ear pain, throat pain Respiratory: shortness of breath. denies: cough, wheezing Cardiovascular: chest pain. denies: palpitations Endocrine: no symptoms reported Gastrointestinal: denies: abdominal pain, nausea, diarrhea Genitourinary: denies: urgency, dysuria, discharge Musculoskeletal: denies: back pain, joint swelling, arthralgia Skin: denies: rash, lesions Neurological: denies: headache, weakness, paresthesias Psychiatric: denies: anxiety, depression Hematological/Lymphatic: denies: easy bleeding, easy bruising Past History Past Medical History: other Medications and Allergies Allergies Allergy/AdvReac Type Severity Reaction Status Date / Time hydrocodone Allergy Nausea and Verified 09/27/14 14:18 vomiting Home Medications Medication Instructions Recorded Confirmed Last Taken Type Potassium Chloride [K-Tab ER] 20 meq PO DAILY 10/08/14 12/16/20 12/10/20 History Aspirin [Aspirin BABY CHEW TAB] 81 mg PO QDAY 12/11/20 12/16/20 12/11/20 02:57 History AtorvaSTATin [Lipitor] 20 mg PO QHS 12/11/20 12/16/20 12/10/20 History Chlorthalidone [Thalitone] 25 mg PO QDAY 12/11/20 12/16/20 12/10/20 History Clopidogrel [Plavix] 75 mg PO QDAY 12/11/20 12/16/20 12/11/20 02:57 History ISOSORBIDE MONOnitrate [Imdur ER] 30 mg PO DAILY 12/11/20 12/16/20 12/10/20 History Losartan [Cozaar] 50 mg PO QDAY 12/11/20 12/16/20 12/10/20 History Omeprazole 40 mg PO BID 12/11/20 12/16/20 12/10/20 History lamoTRIgine [lamoTRIgine ER] 25 mg PO DAILY 12/11/20 12/16/20 12/10/20 History Aspirin [Adult Aspirin] 81 mg PO DAILY 12/16/20 12/16/20 Unknown History Active Meds: Active Medications Acetaminophen (Acetaminophen 325 Mg Tab) 650 mg PO Q4H PRN PRN Reason: Pain MILD(1-3)/Fever >100.5/EWING Aspirin (Aspirin 81 Mg Tab Chew) 81 mg PO ONCE [facility] Stop: 12/17/20 13:00 Aspirin (Aspirin Ec 81 Mg Tab) 81 mg PO DAILY [facility] Atorvastatin Calcium (Atorvastatin 20 Mg Tab) 20 mg PO QHS [facility] Chlorthalidone (Chlorthalidone 25 Mg Tab) 25 mg PO QDAY [facility] Clopidogrel Bisulfate (Clopidogrel 75 Mg Tab) 75 mg PO QDAY [facility] Last Admin: 12/16/20 20:23 Dose: 75 mg Documented by: Enoxaparin Sodium (Enoxaparin 40 Mg/0.4 Ml Inj) 40 mg SUB-Q DAILY@2200 [facility]; Protocol Last Admin: 12/16/20 21:07 Dose: Not Given Documented by: Isosorbide Mononitrate (Isosorbide Mononitrate Er 30 Mg Tab) 30 mg PO QDAY [facility] Last Admin: 12/16/20 20:24 Dose: 30 mg Documented by: Isosorbide Mononitrate (Isosorbide Mononitrate Er 30 Mg Tab) 30 mg PO DAILY [facility] Losartan Potassium (Losartan 50 Mg Tab) 50 mg PO QDAY [facility] Metoprolol Tartrate (Metoprolol Tartrate 50 Mg Tab) 50 mg PO BID [facility] Last Admin: 12/16/20 21:08 Dose: Not Given Documented by: Miscellaneous Medication (Lamotrigine [Lamotrigine Er]) 25 mg PO DAILY [facility] Morphine Sulfate (Morphine 2 Mg/1 Ml Inj) 2 mg IV Q4H PRN PRN Reason: Pain, Moderate (4-6) Ondansetron HCl (Ondansetron 4 Mg/2 Ml Inj) 4 mg IV Q8H PRN PRN Reason: Nausea And Vomiting Oxycodone/Acetaminophen (Oxycodone /Acetaminophen 5-325mg Tab) 1 tab PO Q6H PRN PRN Reason: Pain, Moderate (4-6) Pantoprazole Sodium (Pantoprazole 40 Mg Tab) 40 mg PO BID [facility] Potassium Chloride (Potassium Chloride Er 20 Meq Tab) 20 meq PO DAILY [facility] Sodium Chloride (Sodium Chloride 0.9% 10 Ml Flush Syringe) 10 ml IV BID [facility] Sodium Chloride (Sodium Chloride 0.9% 10 Ml Flush Syringe) 10 ml IV PRN PRN PRN Reason: LINE FLUSH Zolpidem Tartrate (Zolpidem 5 Mg Tab) 5 mg PO QHS PRN PRN Reason: Insomnia Exam - Constitutional Vitals: Temp Pulse Resp BP Pulse Ox 98.1 F 76 16 133/78 99 12/16/20 19:18 12/16/20 19:18 12/16/20 19:18 12/16/20 19:18 12/16/20 19:18 HEART Score - HEART Score EKG: Non-specific Age: 45-65 Risk factors: 1-2 risk factors Troponin: Troponin T < 0.010 ng/mL (0.00-0.029) 12/16/20 18:08 Troponin: < normal limit - Critical Actions Critical Actions: 4-6 pts:12-16.6% risk of adverse cardiac event. Should be admitted Results - Labs CBC & Chem 7: 12/17/20 05:21 12/17/20 05:21 Labs: Laboratory Last Values WBC 10.4 K/mm3 (4.5-11.0) 12/16/20 10:59 RBC 3.91 M/mm3 (3.65-5.03) 12/16/20 10:59 Hgb 13.5 gm/dl (10.1-14.3) 12/16/20 10:59 Hct 38.1 % (30.3-42.9) 12/16/20 10:59 MCV 98 fl (79-97) H 12/16/20 10:59 MCH 34 pg (28-32) H 12/16/20 10:59 MCHC 35 % (30-34) H 12/16/20 10:59 RDW 13.1 % (13.2-15.2) L 12/16/20 10:59 Plt Count 323 K/mm3 (140-440) 12/16/20 10:59 Lymph % (Auto) 35.9 % (13.4-35.0) H 12/16/20 10:59 [place] % (Auto) 8.1 % (0.0-7.3) H 12/16/20 10:59 Eos % (Auto) 2.1 % (0.0-4.3) 12/16/20 10:59 Baso % (Auto) 0.9 % (0.0-1.8) 12/16/20 10:59 Lymph # (Auto) 3.7 K/mm3 (1.2-5.4) 12/16/20 10:59 [place] # (Auto) 0.8 K/mm3 (0.0-0.8) 12/16/20 10:59 Eos # (Auto) 0.2 K/mm3 (0.0-0.4) 12/16/20 10:59 Baso # (Auto) 0.1 K/mm3 (0.0-0.1) 12/16/20 10:59 Seg Neutrophils % 53.0 % (40.0-70.0) 12/16/20 10:59 Seg Neutrophils # 5.5 K/mm3 (1.8-7.7) 12/16/20 10:59 Sodium 136 mmol/L (137-145) L 12/16/20 10:59 Potassium 3.9 mmol/L (3.6-5.0) D 12/16/20 10:59 Chloride 97.2 mmol/L (98-107) L 12/16/20 10:59 Carbon Dioxide 27 mmol/L (22-30) 12/16/20 10:59 Anion Gap 16 mmol/L 12/16/20 10:59 BUN 10 mg/dL (7-17) 12/16/20 10:59 Creatinine 0.7 mg/dL (0.6-1.2) 12/16/20 10:59 Estimated GFR > 60 ml/min 12/16/20 10:59 BUN/Creatinine Ratio 14 % 12/16/20 10:59 Glucose 90 mg/dL (65-100) 12/16/20 10:59 Calcium 10.2 mg/dL (8.4-10.2) D 12/16/20 10:59 Total Bilirubin 0.60 mg/dL (0.1-1.2) 12/16/20 10:59 AST 24 units/L (5-40) 12/16/20 10:59 ALT 24 units/L (7-56) 12/16/20 10:59 Alkaline Phosphatase 114 units/L (35-129) 12/16/20 10:59 Troponin T < 0.010 ng/mL (0.00-0.029) 12/16/20 18:08 NT-Pro-B Natriuret Pep 98.00 pg/mL (0-900) 12/16/20 13:50 Total Protein 8.2 g/dL (6.3-8.2) 12/16/20 10:59 Albumin 4.7 g/dL (3.9-5) 12/16/20 10:59 Albumin/Globulin Ratio 1.3 % 12/16/20 10:59 Short CBC 12/16/20 12/17/20 Range/Units 10:59 05:21 WBC 10.4 8.8 (4.5-11.0) K/mm3 Hgb 13.5 12.0 (10.1-14.3) gm/dl Hct 38.1 34.3 (30.3-42.9) % Plt Count 323 270 (140-440) K/mm3 BMP 12/16/20 12/17/20 10:59 05:21 Sodium 136 L 140 Potassium 3.9 D 3.7 Chloride 97.2 L 102.3 Carbon Dioxide 27 24 BUN 10 10 Creatinine 0.7 0.6 Glucose 90 99 Calcium 10.2 D 9.1 Cardiac Enzymes 12/16/20 12/16/20 12/16/20 Range/Units 10:59 13:50 18:08 Troponin T < 0.010 < 0.010 < 0.010 (0.00-0.029) ng/mL 12/17/20 12/17/20 Range/Units 01:19 05:21 Troponin T < 0.010 < 0.010 (0.00-0.029) ng/mL Liver Function 12/16/20 12/17/20 Range/Units 10:59 05:21 Total Bilirubin 0.60 0.60 (0.1-1.2) mg/dL AST 24 17 (5-40) units/L ALT 24 17 (7-56) units/L Alkaline Phosphatase 114 94 (35-129) units/L Albumin 4.7 3.8 L (3.9-5) g/dL - Imaging and Cardiology EKG: report reviewed (Sinus rhythm no acute ST-T wave changes) Chest x-ray: report reviewed (No acute findings) Thomas/IV: Voiding Method Toilet Assessment and Plan Advance Directives: Yes (Full code) VTE prophylaxis?: Chemical Plan of care discussed with patient/family: Yes - Patient Problems (1) Acute coronary syndrome Current Visit: Yes Status: Acute Plan to address problem: Lexiscan in the morning given the patient recently had stents To rule out stent occlusion Cardiology consult by [facility] Serial troponins (2) Coronary artery disease Current Visit: Yes Status: Chronic Qualifiers: Coronary Disease-Associated Artery/Lesion type: [place] artery [place] vs. transplanted heart: [place] heart Plan to address problem: *Since Continue Plavix and aspirin (3) Hypertension Current Visit: Yes Status: Chronic Qualifiers: Hypertension type: essential hypertension Qualified Code(s): I10 - Essential (primary) hypertension Plan to address problem: Continue antihypertensive (4) Hyperlipidemia Current Visit: Yes Status: Chronic Qualifiers: Hyperlipidemia type: mixed hyperlipidemia Qualified Code(s): E78.2 - Mixed hyperlipidemia Plan to address problem: Continue statins (5) DVT prophylaxis Current Visit: Yes Status: Acute Plan to address problem: On heparin and GI prophylaxis
[2020-12-17 05:38] LABS: Hematocrit 34.3 % (30.3-42.9); Mean Corpuscular HGB Conc 35 % (30-34); Mean Corpuscular Volume 99 fl (79-97); Platelet Count 270 K/mm3 (140-440); Red Blood Count 3.46 M/mm3 (3.65-5.03)
[2020-12-17 06:36] LABS: Alanine Aminotransferase 17 units/L (7-56); Albumin 3.8 g/dL (3.9-5); Blood Urea Nitrogen 10 mg/dL (7-17); Calcium 9.1 mg/dL (8.4-10.2); Chol/HDL Ratio 2.64 %; HDL Cholesterol 42 mg/dL (40-59); Hemolysis Index 8; LDL Cholesterol,Direct 63 mg/dL (50-130)
[2020-12-17 06:37] LABS: BUN/Creatinine Ratio 17
[2020-12-17] MEDS: CLOPIDOGREL 75 MG TAB PO SCH (09:03)
[2020-12-17] MEDS: METOPROLOL TARTRATE 50 MG TAB PO SCH (09:04)
--- NOTE | 2020-12-17 09:40 | Progress Note ---
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 Echocardiogram is pending read 12-lead reviewed no ST segment elevation. Troponin is negative x1. Continue to trend CE's. Patient started on Imdur for chronic exertional chest pain. Patient has significant relief overnight of chest pain symptoms. Patient feels much better and is requesting to go home. History of AMI status post LUISA stent placement x3 Resume aspirin 81 mg p.o., Plavix 75 mg p.o. daily Cardiomyopathy Echocardiogram reviewed (07/02/2020): LVEF is 45%. Inferior wall appears moderately hypokinetic. Inferior lateral wall appears moderately hypokinetic. Grade 1 diastolic dysfunction. RV SF is normal. Mild MR. Mild TR. Beta-arun therapy is indicated metoprolol has been initiated 50 mg twice daily. Hypertension Optimize antihypertensive regimen. Initiate metoprolol 50 mg twice daily. DVT prophylaxis Lovenox SQ Patient is currently in stable cardiac condition. Nothing further to add from cardiac standpoint. Patient may discharge on Imdur. Patient has follow-up scheduled in our [place] office with Dr Hall on 12/22/2020 at 8:30 AM Patient has follow-up scheduled in our [place] office with Dr. Ronald Frances on 12/26/2020 at 9 AM #[id number] This patient was seen in conjunction with Dr Noriega who agrees with this assessment and plan of care. 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 transplanted heart: [place] heart Subjective Date of service: 12/17/20 Principal diagnosis: Chest Pain Interval history: Patient resting comfortably in bed. No shortness of breath or chest pain overnight. Patient reports significant relief of chest pain symptoms. Telemetry reviewed: Sinus rhythm 94. No events Objective Last Vital Signs Temp 97.5 F L 12/17/20 07:39 Pulse 66 12/17/20 09:06 Resp 19 12/17/20 07:39 BP 113/69 12/17/20 09:06 Pulse Ox 100 12/17/20 07:39 - Physical Examination General: No Apparent Distress HEENT: Positive: PERRL, Normocephaly Neck: Positive: neck supple, trachea midline Cardiac: Positive: Reg Rate and Rhythm, S1/S2 Lungs: Positive: clear to auscultation, Normal Breath Sounds Neuro: Positive: Grossly Intact Abdomen: Positive: Unremarkable, Soft Skin: Negative: Rash, Wound Extremities: Absent: upper extr. pulses, lower extr. pulses - Labs and Meds Cardiac Enzymes 12/16/20 12/17/20 Range/Units 10:59 05:21 AST 24 17 (5-40) units/L Lipids 12/17/20 Range/Units 05:21 Triglycerides 89 (2-149) mg/dL Cholesterol 111 (50-199) mg/dL HDL Cholesterol 42 (40-59) mg/dL Cholesterol/HDL Ratio 2.64 % CBC 12/16/20 12/17/20 Range/Units 10:59 05:21 WBC 10.4 8.8 (4.5-11.0) K/mm3 RBC 3.91 3.46 L (3.65-5.03) M/mm3 Hgb 13.5 12.0 (10.1-14.3) gm/dl Hct 38.1 34.3 (30.3-42.9) % Plt Count 323 270 (140-440) K/mm3 Lymph # (Auto) 3.7 (1.2-5.4) K/mm3 [place] # (Auto) 0.8 (0.0-0.8) K/mm3 Eos # (Auto) 0.2 (0.0-0.4) K/mm3 Baso # (Auto) 0.1 (0.0-0.1) K/mm3 Comprehensive Metabolic Panel 12/16/20 12/17/20 Range/Units 10:59 05:21 Sodium 136 L 140 (137-145) mmol/L Potassium 3.9 D 3.7 (3.6-5.0) mmol/L Chloride 97.2 L 102.3 (98-107) mmol/L Carbon Dioxide 27 24 (22-30) mmol/L BUN 10 10 (7-17) mg/dL Creatinine 0.7 0.6 (0.6-1.2) mg/dL Glucose 90 99 (65-100) mg/dL Calcium 10.2 D 9.1 (8.4-10.2) mg/dL AST 24 17 (5-40) units/L ALT 24 17 (7-56) units/L Alkaline Phosphatase 114 94 (35-129) units/L Total Protein 8.2 7.1 (6.3-8.2) g/dL Albumin 4.7 3.8 L (3.9-5) g/dL - Imaging and Cardiology EKG: report reviewed (Sinus rhythm no acute ST-T wave changes) Echo: report reviewed Cardiac cath: report reviewed (Cath report reviewed (12/11/2020): Successful PCI of the proximal,, mid, distal RCA with a mid RCA LUISA. Left main, patent, LAD proximal patent, mid 20 to 30%, bifurcating into diagonal 1, which medium caliber and patent. Rest of the LAD is a large caliber and patent. Circumflex in the AV groove is) - Telemetry EKG Rhythm: Sinus Bradycardia - EKG Sinus rhythms and dysrhythmias: sinus rhythm
[2020-12-17] MEDS ORDERED: LOSARTAN 50 MG TAB PO SCH (10:00)
[2020-12-17] MEDS ORDERED: ASPIRIN EC 81 MG TAB PO SCH (10:00)
[2020-12-17] MEDS ORDERED: CLOPIDOGREL 75 MG TAB PO SCH (10:00)
[2020-12-17] MEDS ORDERED: PANTOPRAZOLE 40 MG TAB PO SCH (10:00)
[2020-12-17] MEDS ORDERED: LAMOTRIGINE 25 MG PO SCH (10:00)
[2020-12-17] MEDS ORDERED: ASPIRIN 81 MG TAB CHEW PO SCH (10:00)
[2020-12-17] MEDS ORDERED: POTASSIUM CHLORIDE ER 20 MEQ TAB PO SCH (10:00)
[2020-12-17] MEDS ORDERED: CHLORTHALIDONE 25 MG TAB PO SCH (10:00)
[2020-12-17 13:01] VITALS: BP 99/65
--- NOTE | 2020-12-17 13:24 | Discharge Summary ---
Providers - Providers Date of Admission: 12/16/20 14:47 Date of discharge: 12/17/20 Attending physician: SUE MORFIN 12/16/20 14:40 Consult to Physician [CONS] Routine Comment: Consulting Provider: MATTHEW FRANCES Physician Instructions: Reason For Exam: chest pain with exertional sob s/p cardiac stents Primary care physician: RETAIL ASSOCIATE Hospitalization Condition: Fair Hospital course: This is a 50-year-old female with history of coronary artery disease status post PCI with stent placement recently presented to the hospital with complaints of chest pain. Patient was evaluated in the ER, initial cardiac enzyme and EKG was unremarkable, chest x-ray showed no infiltrates. CTA showed no acute PE. Patient was admitted and cardiology was consulted. Cath report reviewed (12/11/2020): Successful PCI of the proximal,, mid, distal RCA with a mid RCA LUISA. Left main, patent, LAD proximal patent, mid 20 to 30%, bifurcating into diagonal 1, which medium caliber and patent. Rest of the LAD is a large caliber and patent. Circumflex in the AV groove is large caliber and patent. 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 If patient fails medical therapy, consider referral for ROLLED GLASS CROSSCUTTER of OM. Cardiology recommended to continue home medicine aspirin Plavix and beta-arun and Imdur along with other current medications. 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 patient was then discharged home in stable condition with outpatient follow-up. Discharge plan and management was thoroughly discussed with the patient and she verbalized understanding. Disposition: - TO HOME OR SELFCARE Final Discharge Diagnosis (Prints w/discharge instructions): Chest pain, due to coronary artery disease with ROLLED GLASS CROSSCUTTER. history of HI s/p LUISA placement x3. Cardiomyopathy with EF 45%, chronic. Hypertension Time spent for discharge: 34 minutes Core Measure Documentation - Palliative Care Palliative Care/ Comfort Measures: Not Applicable - Core Measures Any of the following diagnoses?: heart failure - Heart Failure Discharge Requirements CASE/ARB for LVSD if EF <40%: Not Applicable Beta arun at discharge: Yes Exam - Physical Exam Narrative exam: GENERAL: well-developed and well-nourished lying on bed appeared to be in no discomfort. HEENT: Normocephalic. Atraumatic. No conjunctival congestion or icterus. Patient has moist mucous membranes. NECK: Supple. Trachea midline. CHEST/LUNGS: Clear to auscultated bilaterally, breathing nonlabored. No wheezes crackles or rhonchi. HEART/CARDIOVASCULAR: Regular in rate and rhythm. S1 and S2 positive. ABDOMEN: Abdomen is soft, nontender. Patient has normal bowel sounds. SKIN: There is no rash. Warm and dry. NEURO: No focal motor deficit. Follows command. MUSCULOSKELETAL: No joint effusion or tenderness. EXTRIMITY: No edema, no cyanosis or clubbing. PSYCH: Cooperative. - Constitutional Vitals: Temp Pulse Resp BP Pulse Ox 98.7 F 75 18 99/65 99 12/17/20 11:16 12/17/20 11:16 12/17/20 11:16 12/17/20 11:17 12/17/20 11:16 Plan Activity: advance as tolerated Weight Bearing Status: Weight Bear as Tolerated Diet: low fat, low salt Special Instructions: record daily BP diary Additional Instructions: Patient has follow-up scheduled in [place] office with Dr Hall on 12/22/2020 at 8:30 AM. Patient has follow-up scheduled in [place] office with Dr. Ronald Frances on 12/26/2020 at 9 AM. #[id number] Follow up with: PRIMARY CAREMD [Primary Care Provider] - 3-5 Days Prescriptions: Metoprolol [Lopressor TAB] 50 mg PO BID #60 tablet
[2020-12-18] MEDS ORDERED: ASPIRIN EC 81 MG TAB PO SCH (10:00)
--- NOTE | 2020-12-18 17:21 | Electrocardiograph Report ---
[facility] Test Date: 2020-12-16 Test Time: 10:55:40 Pat Name: IDANIA LIND Department: Room: A475 1 Gender: F Flaker Operator: RICK : 1970 Requested By: JOSIE HAYES Order Number: [id number] Reading MD: Vineet Noriega Measurements Intervals [place] Rate: 75 P: 50 MD: 171 QRS: 5 QRSD: 108 T: 1 QT: 388 QTc: 435 Interpretive Statements Sinus rhythm Probable left atrial enlargement Low voltage, precordial leads Consider anterior infarct Compared to ECG 12/12/2020 07:36:03 Low QRS voltage now present Loss of prominent R wavesin v4-6,?lead placement. Intraventricular conduction delay no longer present Electronically Signed On 12-18-2020 17:21:39 EDT by Vineet Noriega
--- NOTE | 2020-12-18 17:40 | Electrocardiograph Report ---
[facility] Test Date: 2020-12-17 Test Time: 08:24:27 Pat Name: IDANIA LIND Department: Room: A475 1 Gender: F New Car Driver: DUNCAN : 1970 Requested By: JOSIE HAYES Order Number: [id number] Reading MD: Vineet Noriega Measurements Intervals [place] Rate: 65 P: 56 [place]: 187 QRS: 11 QRSD: 106 T: 19 QT: 438 QTc: 456 Interpretive Statements Sinus rhythm Compared to ECG 12/16/2020 10:55:40 Myocardial infarct finding no longer present Electronically Signed On 12-18-2020 17:40:36 EDT by Vineet Noriega
== END 2020-12-17 14:25 | disposition home or self-care (01) ==
LOC: ED 10:42 → 4A 14:47
PROVIDERS: ADMIT Internal Medicine; ATTEND Internal Medicine
DX: I24.9 Acute ischemic heart disease, unspecified (principal); I25.10 Atherosclerotic heart disease of native coronary artery without angina pectoris; I10 Essential (primary) hypertension; E78.2 Mixed hyperlipidemia; K21.9 Gastro-esophageal reflux disease without esophagitis; G43.909 Migraine, unspecified, not intractable, without status migrainosus; M10.9 Gout, unspecified; F32.9 Major depressive disorder, single episode, unspecified; R06.00 Dyspnea, unspecified; I42.9 Cardiomyopathy, unspecified; Z79.82 Long term (current) use of aspirin; Z87.891 Personal history of nicotine dependence; Z95.1 Presence of aortocoronary bypass graft; Z79.899 Other long term (current) drug therapy; Z98.890 Other specified postprocedural states
CPT/HCPCS: 36415; 71045; 71275; 80053; 80061; 82607; 82747; 83036; 83880; 84484; 85025; 85027; 93005; 93306; 96372; 99284; A9270; G0378; J1650; Q9967

== ENCOUNTER 2021-06-08 08:06 | Outpatient (CLI) | payer OTHER ==
--- NOTE | 2021-06-08 09:32 | Mammography Report ---
DIGITAL SCREENING MAMMOGRAM WITH CAD, 06/08/2021 CLINICAL INFORMATION / INDICATION: Routine screening mammography. SCREENING MAMMOGRAM TECHNIQUE: Digital bilateral 2D mammography was obtained in the craniocaudal and mediolateral obliqu e projections. This examination was interpreted with the benefit of Computer-Aided Detection analysis . COMPARISON: 06/05/2019, 06/06/2020 FINDINGS: Breast Density: There are scattered areas of fibroglandular density. No dominant mass, suspicious calcifications, or architectural distortion in either breast. IMPRESSION: No mammographic evidence of malignancy. Follow up recommendation: Routine yearly BI-RADS Category 1: Negative. A "normal" or negative report should not discourage follow up or biopsy of a clinically significant f inding. A written summary of these findings will be mailed to the patient. The patient will be entered into a mammography reporting system which will generate a reminder letter for the patient's next appointmen t at the appropriate interval. The [employer] recommends yearly mammograms starting at age 40 and continuing as l epifanio as a woman is in good health. Breast MRI is recommended for women with an approximate 20-25% or greater lifetime risk of breast cancer, including women with a strong family history of breast or ova arabella cancer or who have been treated for Hodgkin's disease. Signer Name: Evan Irving MD Signed: 06/08/2021 9:27 AM Workstation Name: [id number]
== END 2021-06-08 08:07 | disposition home or self-care (01) ==
LOC: MAMMO 08:06
PROVIDERS: ATTEND Family Medicine
DX: Z12.31 Encounter for screening mammogram for malignant neoplasm of breast (principal)
CPT/HCPCS: 77067